=== PATIENT | male | born 1945 | race Caucasian/White ===

== ENCOUNTER 2017-05-05 18:30 | Emergency (ER) | payer OTHER ==
[~2017-05-05] VITALS: Ht 172.7 cm; Wt 88.5 kg
[2017-05-05] MEDS ORDERED: GLUCOPHAGE XR750 MG PO (19:14)
[2017-05-05] MEDS ORDERED: ASPIR 8181 MG PO (19:14)
[2017-05-05] MEDS ORDERED: ATORVASTATIN CA40 MG PO (19:14)
[2017-05-05] MEDS ORDERED: PIOGLITAZONE15 MG PO (19:15)
[2017-05-05] MEDS ORDERED: QUINAPRIL-HCTZ1 EAC2 PO (19:16)
[2017-05-05] MEDS ORDERED: FLOMAX0.4 MG PO (19:16)
[2017-05-05] MEDS ORDERED: [UNRECOGNIZED DRUG - REMARK] (19:17)
[2017-05-05] MEDS ORDERED: UTI ANTIBIOTIC (19:17)
[2017-05-05 21:00] VITALS: BP 148/76
== END 2017-05-05 21:00 | disposition home or self-care (01) ==
LOC: ER 18:30
DX: R33.9 Retention of urine, unspecified (principal); I10 Essential (primary) hypertension; E78.00 Pure hypercholesterolemia, unspecified; F10.99 Alcohol use, unspecified with unspecified alcohol-induced disorder